=== PATIENT | female | born 1985 | race African-American/Black ===

== ENCOUNTER 2024-07-09 09:10 | Emergency (ER) | payer MEDICAID ==
[~2024-07-09] VITALS: Ht 160 cm; Wt 76.0 kg
[2024-07-09 09:17] VITALS: O2SAT 99
[2024-07-09] MEDS ORDERED: IBUP-1523 MT (12:52)
[2024-07-09] MEDS ORDERED: TOPUD MT (12:52)
[2024-07-09 13:15] VITALS: BP 105/70; PULSE 64; RESP 17; TEMP 36.78072; O2SAT 99
== END 2024-07-09 13:49 | disposition home or self-care (01) ==
LOC: ER 09:10
DX: S16.1XXA Strain of muscle, fascia and tendon at neck level, initial encounter (principal); J45.909 Unspecified asthma, uncomplicated; Z88.0 Allergy status to penicillin; V49.49XA Driver injured in collision with other motor vehicles in traffic accident, initial encounter; Y93.89 Activity, other specified; Y92.89 Other specified places as the place of occurrence of the external cause; Y99.8 Other external cause status
CPT/HCPCS: 72040; 73130; 99284